=== PATIENT | male | born 1975 | race Caucasian/White ===

== ENCOUNTER 2018-08-27 03:41 | Emergency (ER) | payer SELFPAY ==
[2018-08-27] MEDS ORDERED: ZIPRASIDONE HCL 40 MG CAPSULE PO ONE (04:36)
[2018-08-27] MEDS ORDERED: BENZTROPINE MESYLATE 1 MG TABLET PO ONE (04:36)
[2018-08-27 05:42] LABS: APPEARANCE,URINE CLOUDY; BILIRUBIN,URINE NEGATIVE (NEGATIVE); COLOR,URINE YELLOW; GLUCOSE, URINE NEGATIVE (NEGATIVE); KETONES,URINE NEGATIVE (NEGATIVE); LEUKOCYTE ESTERASE,URINE NEGATIVE (NEGATIVE); NITRITE,URINE NEGATIVE (NEGATIVE); PROTEIN,URINE NEGATIVE (NEGATIVE); URINE SPECIFIC GRAVITY 1.023
[2018-08-27 05:57] LABS: ABSOLUTE BASOPHILS # (AUTO) 0.1 10^3/uL (0.0-0.2); ABSOLUTE EOSINOPHILS # (AUTO) 0.6 10^3/uL (0.0-0.6); ABSOLUTE LYMPHOCYTES (AUTO) 2.8 10^3/uL (0.5-4.7); ABSOLUTE MONOCYTES (AUTO) 0.6 10^3/uL (0.1-1.4); BASOPHILS % (AUTO) 0.9 % (0-2); EOSINOPHILS % (AUTO) 6.8 % (0-6); HEMATOCRIT 39.1 % (37.9-51.0); HEMOGLOBIN 13.2 g/dL (13.5-17.0); LYMPHOCYTES % (AUTO) 30.8 % (13-45); MEAN CORPUSCULAR HEMOGLOBIN 29.6 pg (27.0-33.4); MEAN CORPUSCULAR HGB CONC 33.8 g/dL (32.0-36.0); MEAN CORPUSCULAR VOLUME 88 fl (80-97); MONOCYTES % (AUTO) 7.1 % (3-13); PLATELET COUNT 287 10^3/uL (150-450); RED BLOOD COUNT 4.47 10^6/uL (4.35-5.55); RED CELL DISTRIBUTION WIDTH 12.5 % (11.5-14.0); SEGMENTED NEUTROPHILS % (AUTO) 54.4 % (42-78); TOTAL CELLS COUNTED % (AUTO) 100 %; WHITE BLOOD COUNT 9.1 10^3/uL (4.0-10.5)
[2018-08-27 06:11] LABS: URINE BARBITURATES SCREEN NEGATIVE; URINE BENZODIAZEPINES SCREEN NEGATIVE; URINE COCAINE SCREEN NEGATIVE; URINE METHADONE SCREEN NEGATIVE; URINE PHENCYCLIDINE SCREEN NEGATIVE
--- NOTE | 2018-08-27 06:15 | ER Document Report ---
Addendum entered and electronically signed by LOIS INIGUEZ DO 08/28/18 11:49: Discharge - Discharge Clinical Impression: Acute psychogenic paranoid psychosis, Methamphetamine abuse, Marijuana abuse Condition: Stable Disposition: HOME, SELF-CARE Additional Instructions: You have been evaluated by medical and behavioral health teams and have been deemed appropriate for discharge. You no longer demonstrating being under the influence. You are highly encouraged to follow-up with substance abuse treatment and have been provided a resource list of area providers. AMPHETAMINE / METHAMPHETAMINE ABUSE: Amphetamines are addicting stimulants. Amphetamines overstimulate the nervous system and give a false feeling of power and mastery. These drugs may be obtained as prescription pills for weight loss, narcolepsy, or attention-deficit disorder. More often they're bought as an illegal street drug, methamphetamine (crank, crystal, speed). Using amphetamines repeatedly can lead to serious medical problems in cluding malnutrition, severe depression, and paranoia. It can take increasing amounts to feel good. Eventually, there will be a "burn out." When you go off amphetamines there is a period of depression that may last for weeks or even months. High doses of amphetamines can cause seizures, confusion, hallucinations, delusions, high blood pressure, muscle damage, heart damage, or sudden . Ma ny times these deadly complications occur even with "normal" doses. Injection of amphetamines is risky for developing abscesses, endocarditis (heart infection), pneumonia, and AIDS. Withdrawal from amphetamines often causes anxiety, depression, and drug cravings. Some users become paranoid and psychotic. There may be cramps, nausea, and vomiting. Many treatment programs are available, but you must make the decision to quit. Medication can be prescribed to control the symptoms of amphetamine toxicity (beta blockers or benzodiazepines). Withdrawal symptoms may require tranquilizers. FOLLOW-UP CARE: If you have been referred to a physician for follow-up care, call the physicians office for an appointment as you were instructed or within the next two days. If you experience worsening or a significant change in your symptoms, notify the physician immediately or return to the Emergency Department at any time for re-evaluation. Referrals: [facility] [Outside] - Follow up as needed Scribe Attestation: 08/27/18 06:20 I personally performed the services described in the documentation, reviewed and edited the documentation which was dictated to the scribe in my presence, and it accurately records my words and actions. Addendum entered and electronically signed by GISSEL FAJARDO LCSWA 08/28/18 10:53: Discharge - Discharge Clinical Impression: Acute psychogenic paranoid psychosis, Methamphetamine abuse, Marijuana abuse Condition: Stable Disposition: HOME, SELF-CARE Additional Instructions: You have been evaluated by medical and behavioral health teams and have been deemed appropriate for discharge. You no longer demonstrating being under the influence. You are highly encouraged to follow-up with substance abuse tr eatment and have been provided a resource list of area providers. AMPHETAMINE / METHAMPHETAMINE ABUSE: Amphetamines are addicting stimulants. Amphetamines overstimulate the nervous system and give a false feeling of power and mastery. These drugs may be obtained as prescription pills for weight loss, narcolepsy, or attention-deficit disorder. More often they're bought as an illegal street drug, methamphetamine (crank, crystal, speed). Using amphetamines repeatedly can lead to serious medical problems including malnutrition, severe depression, and paranoia. It can take increasing amounts to feel good. Eventually, there will be a "burn out." When you go off amphetamines there is a period of depression that may last for weeks or even months. High doses of amphetamines can cause seizures, confusion, hallucinations, delusions, high blood pressure, muscle damage, heart damage, or sudden . Many times these deadly complications occur even with "normal" doses. Injection of amphetamines is risky for developing abscesses, endocarditis (heart infection), pneumonia, and AIDS. Withdrawal from amphetamines often causes anxiety, depression, and drug cravings. Some users become paranoid and psychotic. There may be cramps, nausea, and vomiting. Many treatment programs are available, but you must make the decision to quit. Medication can be prescribed to control the symptoms of amphetamine toxicity (beta blockers or benzodiazepines). Withdrawal symptoms may require tranquilizers. FOLLOW-UP CARE: If you have been referred to a physician for follow-up care, call the physicians office for an appointment as you were instructed or within the next two days. If you experience worsening or a significant change in your symptoms, notify the physician immediately or return to the Emergency Department at any time for re-evaluation. Referrals: [facility] [Outside] - Follow up as needed Scribe Attestation: 08/27/18 06:20 I personally performed the services described in the documentation, reviewed and edited the documentation which was dictated to the scribe in my presence, and it accurately records my words and actions. Original Note: Entered by JUANA ABREU SCRIBE 08/27/18 0442 Acting as scribe for:DARWIN JIMENEZ MD ED Psych Disorder / Suicide - General Chief Complaint: Psych Problem Stated Complaint: POSSIBLE PSYCH Time Seen by Provider: 08/27/18 04:21 Mode of Arrival: Ambulatory Information source: Patient Notes: Patient is a 42 year old male presenting to the emergency department via EMS for AMS. Patient states he is here because he is having some left wrist pain. He then states he was being chased by people who woke him up, while sleep in his home, and told him they wanted to fight in a dark street. He states he is running from these people, heading to [place], and was going "125mph in a 55mph zone". Patient states he has been running for approximately 1 week. He states he called the police concerning the people attempting to fight him but then states he was pulled over by the police for driving too fast. Patient states he feels better now and would like to leave. Patient denies a history of psychiatric disorders. Patient states he is unemployed and homeless and has been so for approximately 1 year. He states he could live with his mother but chooses not to do so. Patient is currently prescribed Suboxone and Adderall. He states he takes Suboxone because "I became hooked on narcotics for working my butt off". Past Medical History - General Information source: Patient - Social History Smoking Status: Current Every Day Smoker Cigarette use (# per day): Yes - 2 PPD Chew tobacco use (# tins/day): No Smoking Education Provided: No Frequency of alcohol use: None Drug Abuse: Other - Prior narcotic use, currently on suboxone Occupation: Unemployed, homeless Lives with: Alone Family History: None, Reviewed & Not Pertinent Review of Systems - Review of Systems Constitutional: No symptoms reported EENT: No symptoms reported Cardiovascular: No symptoms reported Respiratory: No symptoms reported Gastrointestinal: No symptoms reported Genitourinary: No symptoms reported Male Genitourinary: No symptoms reported Musculoskeletal: See HPI Skin: No symptoms reported Hematologic/Lymphatic: No symptoms reported Neurological/Psychological: See HPI -: Yes All other systems reviewed and negative Physical Exam - Vital signs Vitals: Temp Pulse Resp BP Pulse Ox 98.4 F 87 18 112/70 99 08/27/18 04:17 08/27/18 04:17 08/27/18 04:17 08/27/18 04:17 08/27/18 04:17 - Notes Notes: GENERAL: Alert, sitting on the floor in the corner of the room. No acute distress. HEAD: Normocephalic, atraumatic. EYES: Pupils equal, round, and reactive to light. Extraocular movements intact. ENT: Oral mucosa moist, tongue midline. NECK: Full range of motion. Supple. Trachea midline. LUNGS: No respiratory distress. EXTREMITIES: Moves all 4 extremities spontaneously. NEUROLOGICAL: Alert and oriented x3. Normal speech. PSYCH: Sitting on floor in the corner of the room. Seems somewhat paranoid. SKIN: Warm, dry, normal turgor. No rashes or lesions noted. Course - Vital Signs Vital signs: Temp Pulse Resp BP Pulse Ox 98.4 F 87 18 112/70 99 08/27/18 04:17 08/27/18 04:17 08/27/18 04:17 08/27/18 04:17 08/27/18 04:17 - Laboratory Result Diagrams: 08/27/18 04:00 08/27/18 04:00 Laboratory results interpreted by me: 08/27/18 08/27/18 08/27/18 04:00 04:00 04:00 Hgb 13.2 L Eosinophils % 6.8 H Potassium 3.4 L Carbon Dioxide 31 H BUN 22 H Glucose 115 H Urine Blood SMALL H Urine Urobilinogen 2.0 H Salicylates 1.3 L Acetaminophen < 10 L - EKG Interpretation by Me EKG shows normal: Sinus rhythm, [place], Intervals, QRS Complexes, ST-T Waves Rate: Normal - 95 Rhythm: NSR Discharge - Discharge Clinical Impression: Acute psychogenic paranoid psychosis, Methamphetamine abuse, Marijuana abuse Condition: Stable Disposition: PSYCH HOSP/UNIT Scribe Attestation: 08/27/18 06:20 I personally performed the services described in the documentation, reviewed and edited the documentation which was dictated to the scribe in my presence, and it accurately records my words and actions. I personally performed the services described in the documentation, reviewed and edited the documentation which was dictated to the scribe in my presence, and it accurately records my words and actions.
[2018-08-27 06:26] LABS: ALANINE AMINOTRANSFERASE 33 U/L (21-72); ALBUMIN 4.1 g/dL (3.5-5.0); ALKALINE PHOSPHATASE 62 U/L (38-126); ANION GAP 6 (5-19); ASPARTATE AMINO TRANSFERASE 26 U/L (17-59); BILIRUBIN,DIRECT 0.3 mg/dL (0.0-0.4); BILIRUBIN,TOTAL 0.6 mg/dL (0.2-1.3); BLOOD UREA NITROGEN 22 mg/dL (7-20); CALCIUM 9.4 mg/dL (8.4-10.2); CARBON DIOXIDE 31 mmol/L (22-30); CHLORIDE 102 mmol/L (98-107); GLUCOSE 115 mg/dL (75-110); POTASSIUM 3.4 mmol/L (3.6-5.0); SALICYLATE 1.3 mg/dL (2.0-20.0); SODIUM 139.4 mmol/L (137-145); TOTAL PROTEIN 6.6 g/dL (6.3-8.2)
[2018-08-27 06:28] LABS: ACETAMINOPHEN < 10 ug/mL (10-30); ALCOHOL < 10 mg/dL (NONE DETECTED)
[2018-08-27 06:50] LABS: URINE MARIJUANA (THC) SCREEN UNCONFIRMED POSITIVE
--- NOTE | 2018-08-27 09:38 | ER Document Report ---
Doctor's Note Notes: 08/27/18 09:37 Rounds: Chart reviewed and patient sleeping so I did not awaken him. Patient came in with altered mental status and expressing paranoid thoughts. Patient is supposedly on Adderall and Suboxone. His drug screen was positive for amphetamines. And marijuana. Otherwise labs are unremarkable. Vital signs are all essentially normal. Patient appears to be medically stable for transfer or discharge. Alena Banks MD
--- NOTE | 2018-08-27 10:19 | EKG REPORT ---
SEVERITY:- NORMAL ECG - SINUS RHYTHM : Confirmed by: Tracy Barboza MD 27-Aug-2018 10:19:09
--- NOTE | 2018-08-27 17:17 | PSYCHOLOGICAL NOTE ---
Psych Note - Psych Note Date seen by psych provider: 08/27/18 Time seen by psych provider: 08:00 Psych Note: Patient is a 42 year old male presenting to the emergency department via EMS for AMS. Patient states he is here because he is having some left wrist pain. Medication recommendations per [facility]'s contracted psychiatrist Dr. Abby OCAMPO as follows Thorazine 50 mg every 8 hours Cogentin 1 mg twice daily Substance use disorder; methamphetamine, amphetamine, and Suboxone Impression\plan: Patient is recommended for IVC petition for overnight mental health observation. Patient is demonstrating paranoid delusions stemming from probable methamphetamine use. Patient currently reports he was driving 125 mph in a 55 [id number] zone because the mafia was after him. Patient was pulled over by law enforcement. Patient continues to demonstrate paranoid delusions. Medication recommendations have been provided. Patient be reevaluated. Dr. Holland was consulted to care management of this patient; attending physicians in agreement with augmentations and disposition.
[2018-08-27] MEDS: BENZTROPINE MESYLATE 1 MG TABLET PO SCH (18:09)
[2018-08-27] MEDS: CHLORPROMAZINE HCL 50 MG TABLET PO SCH (18:09)
[2018-08-28] MEDS ORDERED: ACETAMINOPHEN 325 MG TABLET PO ONE (00:39)
[2018-08-28] MEDS: CHLORPROMAZINE HCL 50 MG TABLET PO SCH ×2 (00:52→10:28)
--- NOTE | 2018-08-28 09:29 | ER Document Report ---
Doctor's Note Notes: HPI:Patient is a 42 year old male presenting to the emergency department via EMS for AMS. Patient states he is here because he is having some left wrist pain. He then states he was being chased by people who woke him up, while sleep in his home, and told him they wanted to fight in a dark street. He states he is running from these people, heading to [place], and was going "125mph in a 55mph zone". Patient states he has been running for approximately 1 week. He states he called the police concerning the people attempting to fight him but then states he was pulled over by the police for driving too fast. Patient states he feels better now and would like to leave. Patient denies a history of psychiatric disorders. 08/28/18 09:29 Behavioral health note:Patient is a 42 year old male presenting to the emergency department via EMS for AMS. Patient states he is here because he is having some left wrist pain. Medication recommendations per [facility]'s contracted psychiatrist Dr. Abby OCAMPO as follows Thorazine 50 mg every 8 hours Cogentin 1 mg twice daily Substance use disorder; methamphetamine, amphetamine, and Suboxone Impression\\plan: Patient is recommended for IVC petition for overnight mental health observation. Patient is demonstrating paranoid delusions stemming from probable methamphetamine use. Patient currently reports he was driving 125 mph in a 55 [id number] zone because the mafia was after him. Patient was pulled over by law enforcement. Patient continues to demonstrate paranoid delusions. Medication recommendations have been provided. Patient be reevaluated. Dr. Holland was consulted to care management of this patient; attending physicians in agreement with augmentations and disposition. 08/28/18 09:30 As the rounding physician this AM, I assessed the patient's labs, vitals, and records. No concerning findings this morning. Patient denies any acute complaints. Patient is cleared for disposition by [facility]
[2018-08-28] MEDS: BENZTROPINE MESYLATE 1 MG TABLET PO SCH (10:29)
--- NOTE | 2018-08-28 10:51 | PSYCHOLOGICAL NOTE ---
Psych Note - Psych Note Date seen by psych provider: 08/28/18 Time seen by psych provider: 10:35 Psych Note: Patient is a 42 year old male presenting to the emergency department via EMS for AMS. Patient states he is here because he is having some left wrist pain. no medication recommendations at this time Substance use disorder; methamphetamine, amphetamine, and Suboxone Impression\plan: Patient is recommended for rescind of IVC and is cleared from acute psychiatric services. Patient is no longer under the influence and can demonstrate organized, linear and logical thought processes. Patient identifies wanting to return to his mother's home rather than driving to [place]. He engages with clinician and discussion of substance abuse and confirms he needs substance abuse treatment. Resources have been provided to him for our local area however patient does live in the [place] [facility]. Patient identifies his brother as his transportation assistance to return back to his vehicle located at [place]. Dr. Holland was consulted to care management of this patient; attending physicians in agreement with augmentations and disposition.
[2018-08-28 12:02] VITALS: BP 107/54
== END 2018-08-28 12:03 | disposition home or self-care (01) ==
LOC: ER 03:41
DX: F23 Brief psychotic disorder (principal); F15.10 Other stimulant abuse, uncomplicated; F12.10 Cannabis abuse, uncomplicated; Z59.0 Homelessness; F19.10 Other psychoactive substance abuse, uncomplicated; Z79.899 Other long term (current) drug therapy
CPT/HCPCS: 93005; 99285; 36415; 80307 ×4; 85025; 80053; 81001; 93010; J3490 ×2